=== PATIENT | female | born 1965 | race Caucasian/White ===

== ENCOUNTER 2021-03-18 20:05 | Emergency (ER) | payer MEDICARE, MEDICAID ==
[~2021-03-18] VITALS: Ht 160 cm; Wt 111.6 kg
[2021-03-18 21:20] VITALS: BP 162/108
[2021-03-18] MEDS ORDERED: HYDROcodone/acetaminophen 10/325mg tab PO ONE (21:55)
[2021-03-18] MEDS ORDERED: HYDR-3972 PO (22:44)
[2021-03-20] MEDS ORDERED: HYDR-3973 PO (15:29)
[2021-03-20] MEDS ORDERED: METF-436 PO (15:29)
[2021-03-20] MEDS ORDERED: PIOG30TA72 PO (15:29)
[2021-03-20] MEDS ORDERED: ACET-1025 PO (15:29)
[2021-03-20] MEDS ORDERED: CITA40TA11 PO (15:29)
[2021-03-20] MEDS ORDERED: FOLIC ACID PO (15:29)
[2021-03-20] MEDS ORDERED: FENO160T9 PO (15:29)
[2021-03-20] MEDS ORDERED: EZET10TA6 PO (15:29)
[2021-03-20] MEDS ORDERED: METH2.5T PO (15:29)
[2021-03-20] MEDS ORDERED: FOLI0.4T14 PO (15:32)
== END 2021-03-18 22:49 | disposition home or self-care (01) ==
LOC: ER 20:06
DX: S42.292A Other displaced fracture of upper end of left humerus, initial encounter for closed fracture (principal); Z87.81 Personal history of (healed) traumatic fracture; Z79.899 Other long term (current) drug therapy; W18.30XA Fall on same level, unspecified, initial encounter; Y93.89 Activity, other specified; Y92.89 Other specified places as the place of occurrence of the external cause; Y99.8 Other external cause status
CPT/HCPCS: 29105; 29240; 73030; 99284

== ENCOUNTER 2021-03-21 00:07 | Observation (INO) | payer MEDICARE, MEDICAID ==
[~2021-03-21] VITALS: Ht 160 cm; Wt 108.9 kg
[~2021-03-21 00:07] MED LIST changes: -HYDROcodone/acetaminophen 5mg/325mg tablet PO ONE; -cefazolin/dext.iso 2gm/100ml IV ONE; -famotidine 20mg tablet PO ONE; -ringers solution, lacted 1,000 ML IV SCH; -vancomycin 1,000mg inj ONE; -vancomycin 1,500 MG in NS 300ml IV soln IV ONE
[2021-03-22] VITALS (11 sets, daily range): BP systolic 118–138; BP diastolic 73–79
[2021-03-22] MEDS ORDERED: cefazolin/dext.iso 2gm/100ml IV ONE (06:07)
[2021-03-22] MEDS ORDERED: famotidine 20mg tablet PO ONE (06:07)
[2021-03-22] MEDS ORDERED: vancomycin 1,500 MG in NS 300ml IV soln IV ONE (06:08)
[2021-03-22] MEDS ORDERED: proCHLORperazine 10 MG/2 ml inj IV PRN (07:50)
[2021-03-22] MEDS ORDERED: morphine 2 MG/ML inj. syringe IV PRN (07:50)
[2021-03-22] MEDS ORDERED: ringers solution, lacted 1,000 ML IV SCH (07:50)
[2021-03-22] MEDS ORDERED: ketorolac trometh. 30mg/ml inj. IV ONE (07:50)
[2021-03-22] MEDS ORDERED: acetaminophen 1,000mg/100ml IV 100 ML IV PRN (07:50)
[2021-03-22] MEDS ORDERED: morphine 4 MG/ML inj SYRINge IV PRN (07:50)
[2021-03-22] MEDS ORDERED: hydrALAZINE 20mg/ml inj. IV PRN (07:50)
[2021-03-22] MEDS ORDERED: HYDROmorphone/PF 0.2 MG/ML SYRINGE IV PRN ×2 (07:50)
[2021-03-22] MEDS ORDERED: meperidine/PF 25mg/ml syringe IV PRN (07:50)
[2021-03-22] MEDS ORDERED: ondansetron/PF 4mg/2ml inj IV PRN (07:50)
[2021-03-22] MEDS ORDERED: labetalol 20mg/4ml (5mg/ml) syringe IV PRN (07:50)
[2021-03-22] MEDS ORDERED: ondansetron/PF 4mg/2ml inj ONE (07:56)
[2021-03-22] MEDS ORDERED: neostigmine methylsulfate 1 MG/ML 10ml vial ONE (07:56)
[2021-03-22] MEDS ORDERED: glycopyrrolate 0.2mg/ml inj ONE (07:56)
[2021-03-22] MEDS ORDERED: sevoflurane 250ml liquid IH ONE (07:56)
[2021-03-22] MEDS ORDERED: cloNIDine hcl/PF 100mcg/ml inj ONE (07:58)
[2021-03-22] MEDS ORDERED: fentaNYL/PF 50MCG/1 ML 2ML syringe ONE (08:01)
[2021-03-22] MEDS ORDERED: midazolam 1 mg/ML 2ml injection ONE (08:04)
[2021-03-22] MEDS ORDERED: propofol inj 20 ML IV ONE (08:40)
[2021-03-22] MEDS ORDERED: ceFAZolin 1000mg inj ONE ×2 (08:40)
[2021-03-22] MEDS ORDERED: rocuronium 10mg/ml inj IV ONE (08:41)
[2021-03-22] MEDS ORDERED: dexamethasone sod phosphate 4mg/ml inj. ONE (08:41)
[2021-03-22] MEDS ORDERED: LIDOcaine 2% (20mg/ml) 5ml vial ONE (08:41)
[2021-03-22] MEDS ORDERED: LIDOcaine 1%/PF 5ML 10 MG/ML VIAL ONE (08:41)
[2021-03-22] MEDS ORDERED: ROPIVAcaine 0.5% (5mg/ml) 30ml vial ONE (08:41)
[2021-03-22] MEDS ORDERED: morphine 10mg/ml inj. ONE (08:51)
[2021-03-22] MEDS ORDERED: ePHEDrine 50MG/ML INJ. ONE (09:14)
--- NOTE | 2021-03-22 10:15 | NUR ---
ADMITTED TO PACU FROM OR ACCOMPANIED BY ANESTHESIA. INTIAL PHYSICAL ASSESSMENT DONE AND RECORDED. REPORT RECEIVED FROM ANESTHESIA. ACCUCHECK DONE 268 DR WARNER NOTIFIED, REG INSULIN 12UNITS GIVEN SQ ORDERED.
[2021-03-22] MEDS ORDERED: insulin regular, human 10 units/0.1 ml syringe SQ ONE (10:30)
--- NOTE | 2021-03-22 11:30 | NUR ---
PACU DISCHARGE CRITERIA MET, REPORT GIVEN TO FLOOR. DENIES PAIN OR DISCOMFORT. PT IS STABLE AND ADEQUATELY RECOVERED FROM ANESTHESIA. PT HAS STABLE AIRWAY PATENCY, RESPIRATORY FUNCTION TO INCLUDE RESPIRATORY RATE AND O2 SAT. HEART RATE, BLOOD PRESSURE STABLE AND HYDRATION ADEQUATE. MENTAL STATUS IS APPROPRIATE. PAIN AND NAUSEA CONTROLLED. REFER TO PACU SPREADSHEET FOR VITAL SIGNS. PT WILL BE DISCHARGED HOME FROM FLOOR.
== END 2021-03-22 15:10 | disposition home or self-care (01) ==
LOC: PREINTOOBSV 00:13 → ORTHO 4S 03-22 05:38
PROVIDERS: ADMIT Orthopaedic Surgery; ATTEND Orthopaedic Surgery
DX: S42.202A Unspecified fracture of upper end of left humerus, initial encounter for closed fracture (principal); X58.XXXA Exposure to other specified factors, initial encounter; Y93.89 Activity, other specified; Y92.89 Other specified places as the place of occurrence of the external cause
CPT/HCPCS: 23615; 73030; 82948; 96365; 96366; C1713; G0378; J0690; J0735; J1100; J1815; J2001; J2250; J2270; J2405; J2704; J2710; J3010; J3370; J7040; J7120; 76000; A4618; A7000; J2795; J3490

== ENCOUNTER → 2021-03-21 | Day surgery (SDC) | payer MEDICARE, MEDICAID ==
[~2021-03-21] VITALS: Ht 160 cm; Wt 112.6 kg
[~2021-03-21] MED LIST: ACET-1025 PO; CITA40TA11 PO; EZET10TA6 PO; FENO160T9 PO; FOLI0.4T14 PO; HYDR-3973 PO; HYDROcodone/acetaminophen 5mg/325mg tablet PO ONE; METF-436 PO; METH2.5T PO; PIOG30TA72 PO; cefazolin/dext.iso 2gm/100ml IV ONE; famotidine 20mg tablet PO ONE; ringers solution, lacted 1,000 ML IV SCH; vancomycin 1,000mg inj ONE; vancomycin 1,500 MG in NS 300ml IV soln IV ONE
[2021-03-21 11:00] VITALS: BP_SYST 123; BP_SYST 150; BP_DIAS 79; BP_DIAS 88
[2021-03-21 12:38] LABS: EOSINOPHILS # (AUTO) 0.3 X10'3 (0-0.9); EOSINOPHILS % (AUTO) 6.6 % (0-6); HEMATOCRIT 39.9 % (35.0-45.0); HEMOGLOBIN 13.4 g/dl (12.0-16.0); LYMPHOCYTES # (AUTO) 0.9 X10'3 (1.1-4.8); LYMPHOCYTES % (AUTO) 22.2 % (21-51); MEAN CORPUSCULAR HEMOGLOBIN 29.8 PG (27.0-31.0); MEAN CORPUSCULAR HGB CONC 33.7 g/dL (33.0-36.5); MEAN CORPUSCULAR VOLUME 88.4 FL (78-98); MEAN PLATELET VOLUME 8.2 FL (7.4-10.4); MONOCYTES # (AUTO) 0.3 X10'3 (0-0.9); MONOCYTES % (AUTO) 6.2 % (2-12); NEUTROPHILS # (AUTO) 2.6 X10'3 (1.8-7.7); PLATELET COUNT 255 X10'3 (140-440); RED BLOOD COUNT 4.51 X10'6 (4.20-5.60); RED CELL DISTRIBUTION WIDTH 15.3 % (11.5-14.5); WHITE BLOOD COUNT 4.1 X10'3 (4.5-11.0)
[2021-03-21 13:10] LABS: ALANINE AMINOTRANSFERASE 16 U/L (12-78); ALKALINE PHOSPHATASE 42 IU/L (46-116); BILIRUBIN,TOTAL 0.5 MG/DL (0.1-1.0); TOTAL PROTEIN 7.3 G/DL (6.4-8.2)
[2021-03-21 13:13] LABS: ALBUMIN 3.5 G/DL (3.4-5.0); ALBUMIN/GLOBULIN RATIO 0.9 (1.1-1.5); ANION GAP 9 (8-16); ASPARTATE AMINO TRANSFERASE 13 U/L (10-37); BLOOD UREA NITROGEN 11 MG/DL (7-18); BUN/CREATININE RATIO 15.9 (6.6-38.0); CHLORIDE 100 MMOL/L (99-107); CREATININE 0.69 MG/DL (0.40-0.90); GLUCOSE 206 MG/DL (70-104); SODIUM 135 MMOL/L (135-145); TOTAL CARBON DIOXIDE 25.6 MMOL/L (24-32); eGFR 89 ML/MIN
[2021-03-21 13:29] LABS: ABG BASE EXCESS 0.8 mmol/L (-2.0-2.0); ABG HCO3 25.2 mmol/L (22.0-26.0); ABG OXYGEN SATURATION 94.2 % (94-97); ABG PCO2 (T) 39.4 mmHg (32.0-45.0); ABG PO2 (T) 70.2 mmHg (75.0-100.0); ALLEN'S TEST POSITIVE; FCOHb 0.4 % (0.0-3.9); FMetHb 0.4 % (0.0-1.5); FO2Hb 93.4 % (94-97); TOTAL HEMOGLOBIN 12.3 G/dl (12.0-16.0)
--- NOTE | 2021-03-21 13:30 | NUR ---
PT STARTED TO COMPLAIN THAT IT FELT DIFFICULT TO TAKE DEEP BREATHS. IMMEDIATELY CONTACTED ANESTHESIA FOR STAT CXR. VITAL SIGNS REMAINED WNL,PT ABLE TO TAKES DEEP BREATHS, LUNGS CLEAR BILATERALLY, SATS 97-98% ON ROOM AIR. WILL CONTINUE TO MONITOR AND REASSURE PATIENT. PT STATES SHE "MAY BE HAVING ANXIETY, OR A PANIC ATTACK"
--- NOTE | 2021-03-21 14:20 | NUR ---
PT STATES SHE FEELS TOTALLY NORMAL NOW AND THAT HER SYMPTOMS STARTED TO SUBSIDE AFTER SHE KNEW HER CHEST XRAY WAS NORMAL. PT VITALS WNL, CONTINUES TO DENY SOB. RR EVEN AND UNLABORED. PT SITTING UP IN CHAIR W/ FAMILY AT BEDSIDE.
--- NOTE | 2021-03-21 14:41 | NUR ---
VANCO STARTED SLOWLY AT 40ML/HR OK PER ANESTHESIA, WILL CONTINUE TO MONITOR PT. PT FEELS "MUCH BETTER" DENIES SOB AND APPEARS RELAXED.
--- NOTE | 2021-03-21 18:12 | NUR ---
DR MOORE IN TO SEE PT, DECISION TO CANCEL SURGERY AND RESCHEDULE FOR TOMORROW MORNING AT 07:30, WITH PT ARRIVAL TIME OF 05:30. INSTRUCTIONS GIVEN AND GONE OVER W/PT WHO VERBALIZED UNDERSTANDING, PIV D/CD AND PT D/CD TO HOME. Addendum: 03/21/21 at 1816 by Parvin Goss RN Amended: Links added.
== END | disposition home or self-care (01) ==
LOC: PAS 10:40
PROVIDERS: ATTEND Orthopaedic Surgery
DX: S42.302A Unspecified fracture of shaft of humerus, left arm, initial encounter for closed fracture (principal); Z53.8 Procedure and treatment not carried out for other reasons; F32.9 Major depressive disorder, single episode, unspecified; E11.9 Type 2 diabetes mellitus without complications; Z90.710 Acquired absence of both cervix and uterus; Z90.49 Acquired absence of other specified parts of digestive tract; Z79.899 Other long term (current) drug therapy; X58.XXXA Exposure to other specified factors, initial encounter; Y93.89 Activity, other specified; Y92.89 Other specified places as the place of occurrence of the external cause; Y99.8 Other external cause status
CPT/HCPCS: 36415; 36600; 71045; 80053; 82803; 82948; 85018; 85025; 93005; J3370; J7040; J7120